=== PATIENT | male | born 1950 | race Caucasian/White ===

== ENCOUNTER → 2022-02-14 | Day surgery (SDC) | payer MEDICARE, BC ==
[2022-02-09 11:01] LABS: BASOPHILS % (AUTO) 0.2 % (0-1); EOSINOPHILS % (AUTO) 0 % (0-6); LYMPHOCYTES # (AUTO) 0.8 X10'3 (1.1-4.8); MEAN CORPUSCULAR HEMOGLOBIN 29.9 PG (27.0-31.0); MEAN CORPUSCULAR HGB CONC 34.1 g/dL (33.0-36.5); MEAN CORPUSCULAR VOLUME 87.6 FL (78-98); MEAN PLATELET VOLUME 8.5 FL (7.4-10.4); MONOCYTES # (AUTO) 0.4 X10'3 (0-0.9); MONOCYTES % (AUTO) 5.5 % (2-12); NEUTROPHILS # (AUTO) 6.3 X10'3 (1.8-7.7); NEUTROPHILS % (AUTO) 83.3 % (42-75); PRE OP HEMATOCRIT 47.3 % (42.0-52.0); PRE OP HEMOGLOBIN 16.2 g/dL (14.0-17.9); PRE OP PLATELET COUNT 264 X10'3 (140-440); RED CELL DISTRIBUTION WIDTH 13.9 % (11.5-14.5)
[2022-02-09 11:02] LABS: CLARITY,URINE CLEAR (Clear); COLOR,URINE YELLOW (Yellow); GLUCOSE, URINE NEGATIVE (Neg); KETONES,URINE NEGATIVE (Neg); LEUKOCYTE ESTERASE ,URINE NEGATIVE (Neg); NITRITES, URINE NEGATIVE (Neg); OCCULT BLOOD,URINE NEGATIVE (Neg); PROTEIN,URINE NEGATIVE (Neg); UROBILINOGEN,URINE 0.2 E.U/dL (0.2-1.0)
[2022-02-09 11:08] LABS: UA COLLECTION TYPE CLN CATCH MIDSTREAM
[2022-02-09 11:25] LABS: ALBUMIN 4.4 G/DL (3.4-5.0); ALBUMIN/GLOBULIN RATIO 1.4 (1.1-1.5); ALKALINE PHOSPHATASE 131 IU/L (46-116); BLOOD UREA NITROGEN 19 MG/DL (7-18); BUN/CREATININE RATIO 21.1 (5.4-32.0); CALCIUM 8.9 MG/DL (8.5-10.1); CHLORIDE 106 MMOL/L (99-107); PRE OP ALT 32 U/L (30-65); PRE OP ANION GAP 8 (8-16); PRE OP AST 25 U/L (10-37); PRE OP BILIRUB, TOTAL 1.1 MG/DL (0.0-1.0); PRE OP GLUCOSE 129 MG/DL (70-104); PRE OP POTASSIUM 4.1 MMOL/L (3.4-5.1); PRE OP SODIUM 141 MMOL/L (135-145); TOTAL CARBON DIOXIDE 27.4 MMOL/L (24-32); TOTAL PROTEIN 7.6 G/DL (6.4-8.2); eGFR 83 ML/MIN
[~2022-02-14] VITALS: Ht 193 cm; Wt 91.0 kg
[2022-02-14] VITALS (15 sets, daily range): BP systolic 134–156; BP diastolic 73–86
[~2022-02-14] MED LIST: BUPIVAcaine 0.5% inj/PF 30 ML ONE; BUPIVAcaine 0.5% inj/PF 30 ml vial IJ ONE; LIDOcaine 2% (20mg/ml) 5ml vial ONE; NAPR220C15 PO; cefazolin/dext.iso 2gm/50ml IV ONE; dexamethasone sod phosphate 4mg/ml inj. ONE; famotidine 20mg tablet PO ONE; fentaNYL /PF 50mcg/ml 5ml ampule ONE; meperidine/PF 25mg/ml syringe IV PRN; midazolam 1 mg/ML 2ml injection ONE; morphine 2 MG/ML inj. syringe IV PRN; morphine 4 MG/ML inj SYRINge IV PRN; ondansetron/PF 4mg/2ml inj IV PRN; ondansetron/PF 4mg/2ml inj ONE; proCHLORperazine 10 MG/2 ml inj IV PRN; propofol inj 20 ML IV ONE; ringers solution, lacted 1,000 ML IV SCH; rocuronium 10mg/ml inj IV ONE; sevoflurane 250ml liquid IH ONE
--- NOTE | 2022-02-14 14:05 | NUR ---
Received from OR via [facility], accompanied by Anesthesiologist VIVEK and report given by Anesthesiolgist AND RESOLUTION AGENT. PT ARRIVES RESPONSIVE TO VERBAL STIMULI, AAOX4, VSS, IVF INFUSING. PT DENIES PAIN, RESTING COMFORTABLY. LAP AGUS INCISION SITES DRY AND CLEAN, NO DRAINAGE. PT HAS NO COMPLAINTS. Addendum: 02/14/22 at 1418 by Reed Bernstein RN RN Amended: Links added.
--- NOTE | 2022-02-14 16:15 | NUR ---
PT HAD POSITIVE VOID. PT BLADDER SCANNED. POST RESIDUAL WAS 6ML OF URINE. PERFORMED AT DIFFERENT ANGLES. Addendum: 02/14/22 at 1708 by Reed Bernstein RN, RN Amended: Links added.
--- NOTE | 2022-02-14 16:35 | NUR ---
PT DC'D PER ORDER, MEETS DC PROTOCOL. PT DC PAPERWORK PROVIDED, VERBAL AND WRITTEN. PT AND SPOUSE VERBALIZED UNDERSTANDING. PAIN CONTROLLED, AAOX4. PT INDEPENDENT IN AMBULATION. VSS. PT WHEELCHAIRED TO POV WITH OTHER [employer] FLATBED DRIVER AND THERE WAS NO INCIDENT. ALL QUESTIONS ADDRESSED AND PT AWARE OF FOLLOW UP WITH MD. Addendum: 02/14/22 at 1655 by Reed Bernstein RN, RN Amended: Links added.
== END | disposition home or self-care (01) ==
LOC: PAS 07:56
PROVIDERS: ATTEND Surgery
DX: K40.20 Bilateral inguinal hernia, without obstruction or gangrene, not specified as recurrent (principal); K41.90 Unilateral femoral hernia, without obstruction or gangrene, not specified as recurrent; G30.9 Alzheimer's disease, unspecified; F02.80 Dementia in other diseases classified elsewhere, unspecified severity, without behavioral disturbance, psychotic disturbance, mood disturbance, and anxiety; M19.90 Unspecified osteoarthritis, unspecified site; Z85.3 Personal history of malignant neoplasm of breast; Z88.2 Allergy status to sulfonamides; Z96.653 Presence of artificial knee joint, bilateral; Z96.619 Presence of unspecified artificial shoulder joint; Z98.890 Other specified postprocedural states; Z79.899 Other long term (current) drug therapy; Z20.822 Contact with and (suspected) exposure to COVID-19
CPT/HCPCS: 36415; 49650; 80053; 81003; 82948; 85025; 93005; C1758; C1781; J0690; J1100; J2405; J2704; J3490; J7030; J7120; S0020; U0003; U0005; Z7506; Z7508; Z7512; A4215; A4618; J2250; J3010

== ENCOUNTER 2024-02-18 07:37 | Day surgery (SDC) | payer MEDICARE, OTHER ==
[2024-02-12 16:21] LABS: BILIRUBIN,URINE NEGATIVE (Neg); CLARITY,URINE CLOUDY (Clear); COLOR,URINE YELLOW (Yellow); GLUCOSE, URINE NEGATIVE (Neg); KETONES,URINE NEGATIVE (Neg); LEUKOCYTE ESTERASE ,URINE NEGATIVE (Neg); NITRITES, URINE NEGATIVE (Neg); OCCULT BLOOD,URINE NEGATIVE (Neg); PH,URINE 6.5 (4.8-8.0); PROTEIN,URINE NEGATIVE (Neg); UROBILINOGEN,URINE 0.2 E.U/dL (0.2-1.0)
[2024-02-12 16:25] LABS: BASOPHILS % (AUTO) 0.5 % (0-1); EOSINOPHILS # (AUTO) 0.1 X10'3 (0-0.9); EOSINOPHILS % (AUTO) 1.8 % (0-6); LYMPHOCYTES # (AUTO) 1.1 X10'3 (1.1-4.8); MEAN CORPUSCULAR HGB CONC 34.3 g/dL (33.0-36.5); MEAN CORPUSCULAR VOLUME 90.5 FL (78-98); MEAN PLATELET VOLUME 8.2 FL (7.4-10.4); MONOCYTES # (AUTO) 0.6 X10'3 (0-0.9); MONOCYTES % (AUTO) 8.9 % (2-12); NEUTROPHILS # (AUTO) 4.5 X10'3 (1.8-7.7); NEUTROPHILS % (AUTO) 70.8 % (42-75); PRE OP HEMATOCRIT 44.3 % (42.0-52.0); PRE OP HEMOGLOBIN 15.2 g/dL (14.0-17.9); PRE OP PLATELET COUNT 253 X10'3 (140-440); PRE OP WHITE BLOOD COUNT 6.3 10'3 (4.8-10.8); RED CELL DISTRIBUTION WIDTH 13.8 % (11.5-14.5)
[2024-02-12 16:32] LABS: UA COLLECTION TYPE NON-SPECIFIED
[2024-02-12 16:34] LABS: PRE OP INR 1.1 INR; SQUAMOUS EPITHELIAL CELL,UR FEW /LPF (FEW)
[2024-02-12 16:35] LABS: RBC,URINE NONE SEEN /HPF (0-2)
[2024-02-12 16:36] LABS: BACTERIA,URINE FEW /HPF (Neg)
[2024-02-12 16:37] LABS: ALBUMIN 3.9 G/DL (3.4-5.0); ALBUMIN/GLOBULIN RATIO 1.1 (1.1-1.5); ALKALINE PHOSPHATASE 158 IU/L (46-116); BLOOD UREA NITROGEN 26 MG/DL (7-18); BUN/CREATININE RATIO 24.3 (10.0-20.0); CALCIUM 8.5 MG/DL (8.5-10.1); CHLORIDE 105 MMOL/L (99-107); CREATININE 1.07 MG/DL (0.60-1.10); PRE OP ALT 53 U/L (30-65); PRE OP ANION GAP 4 (8-16); PRE OP AST 37 U/L (10-37); PRE OP BILIRUB, TOTAL 1.2 MG/DL (0.0-1.0); PRE OP GLUCOSE 88 MG/DL (70-104); PRE OP POTASSIUM 4.2 MMOL/L (3.4-5.1); PRE OP SODIUM 138 MMOL/L (135-145); TOTAL CARBON DIOXIDE 28.9 MMOL/L (24-32); TOTAL PROTEIN 7.4 G/DL (6.4-8.2); eGFR 68 ML/MIN
[2024-02-12 16:58] LABS: PRE OP PROTIME 11.9 SECONDS (9.0-12.0)
[~2024-02-18] VITALS: Ht 193 cm; Wt 93.0 kg
[2024-02-18] VITALS (24 sets, daily range): BP systolic 116–150; BP diastolic 54–81; PULSE 68–89; RESP 12–23; TEMP 97.9–99.4; O2SAT 93–98
[2024-02-18] MEDS: potassium cl 20mEq in 1/2 NS 1,000 ML IV SCH (04:30)
[2024-02-18] MEDS: tranexamic acid inj. 1,000 MG in normal saline IV soln 100ML IV ONE (05:30)
[2024-02-18] MEDS: cefazolin 2gm/D5W 100mL 100 ML IV ONE (05:30)
[~2024-02-18 07:37] MED LIST changes: -BUPIVAcaine 0.5% inj/PF 30 ML ONE; -BUPIVAcaine 0.5% inj/PF 30 ml vial IJ ONE; +GLUC1TAB75 PO; -LIDOcaine 2% (20mg/ml) 5ml vial ONE; +MULT-1085 PO; -NAPR220C15 PO; +PROSTATE SUPPLEMENT PO; +VIT1CAPS46 PO; +[UNRECOGNIZED DRUG - MIXTURE] PO; -cefazolin/dext.iso 2gm/50ml IV ONE; -dexamethasone sod phosphate 4mg/ml inj. ONE; -famotidine 20mg tablet PO ONE; -fentaNYL /PF 50mcg/ml 5ml ampule ONE; -meperidine/PF 25mg/ml syringe IV PRN; -midazolam 1 mg/ML 2ml injection ONE; -morphine 2 MG/ML inj. syringe IV PRN; -morphine 4 MG/ML inj SYRINge IV PRN; -ondansetron/PF 4mg/2ml inj IV PRN; -ondansetron/PF 4mg/2ml inj ONE; -proCHLORperazine 10 MG/2 ml inj IV PRN; -propofol inj 20 ML IV ONE; -ringers solution, lacted 1,000 ML IV SCH; -rocuronium 10mg/ml inj IV ONE; -sevoflurane 250ml liquid IH ONE
[2024-02-18] MEDS ORDERED: ondansetron/PF 4mg/2ml inj IV PRN ×2 (08:15→10:00)
[2024-02-18] MEDS ORDERED: fentaNYL/PF 50MCG/1 ML 2ML syringe IV PRN ×2 (08:15)
[2024-02-18] MEDS ORDERED: labetalol 20mg/4ml (5mg/ml) syringe IV PRN (08:15)
[2024-02-18] MEDS ORDERED: morphine 2 MG/ML inj. syringe IV PRN (08:15)
[2024-02-18] MEDS ORDERED: hydrALAZINE 20mg/ml inj. IV PRN (08:15)
[2024-02-18] MEDS: ringers solution, lacted 1,000 ML IV SCH ×2 (08:43→14:17)
[2024-02-18] MEDS: famotidine 20mg tablet PO ONE (08:43)
[2024-02-18] MEDS ORDERED: vancomycin 1,000mg inj ONE (09:56)
[2024-02-18] MEDS ORDERED: BUPIVAcaine 0.5% inj/PF 30 ML ONE (09:57)
[2024-02-18] MEDS ORDERED: magnesium hydroxide 30ml (MOM) UD suspension PO PRN (10:00)
[2024-02-18] MEDS ORDERED: diphenhydrAMINE 25mg capsule PO PRN (10:00)
[2024-02-18] MEDS ORDERED: bisacodyl 10mg suppository rectal RC PRN (10:00)
[2024-02-18] MEDS ORDERED: naloxone 0.4 mg/ml inj IV PRN (10:00)
[2024-02-18] MEDS ORDERED: sevoflurane 250ml liquid IH ONE (10:05)
[2024-02-18] MEDS ORDERED: fentaNYL/PF 50MCG/1 ML 2ML syringe ONE ×2 (10:06→11:47)
[2024-02-18] MEDS ORDERED: LIDOcaine 2% (20mg/ml) 5ml vial ONE (10:07)
[2024-02-18] MEDS ORDERED: midazolam 1 mg/ML 2ml injection ONE (10:07)
[2024-02-18] MEDS ORDERED: ROPIVAcaine 0.5% (5mg/ml) 30ml vial ONE (10:07)
[2024-02-18] MEDS ORDERED: propofol inj 20 ML IV ONE (10:07)
[2024-02-18] MEDS ORDERED: rocuronium 10mg/ml inj IV ONE (10:09)
[2024-02-18] MEDS ORDERED: acetaminophen 1,000mg/100ml IV 100 ML IV ONE (10:23)
[2024-02-18] MEDS: BUPIVAcaine 0.5% inj/PF 30 ml vial IJ ONE (10:45)
[2024-02-18] MEDS: acetaminophen 325mg tablet PO PRN (15:46)
[2024-02-18] MEDS: oxyCODONE IR 5mg (immed. release) tablet PO PRN (16:39)
[2024-02-18] MEDS: cefazolin 2gm/D5W 100mL 100 ML IV SCH (18:02)
[2024-02-19 02:00] VITALS: BP 126/61; PULSE 84; RESP 14; TEMP 97.4; O2SAT 95
[2024-02-19 06:00] VITALS: BP 146/66; PULSE 82; RESP 16; TEMP 98.4; O2SAT 93
[2024-02-19 06:50] LABS: BASOPHILS % (AUTO) 0.1 % (0-1); EOSINOPHILS % (AUTO) 0.1 % (0-6); HEMATOCRIT 41.8 % (42.0-52.0); HEMOGLOBIN 14.5 g/dl (14.0-17.9); LYMPHOCYTES # (AUTO) 1.2 X10'3 (1.1-4.8); LYMPHOCYTES % (AUTO) 12.7 % (21-51); MEAN CORPUSCULAR HEMOGLOBIN 31.2 PG (27.0-31.0); MEAN CORPUSCULAR HGB CONC 34.8 g/dL (33.0-36.5); MEAN CORPUSCULAR VOLUME 89.7 FL (78-98); MEAN PLATELET VOLUME 8.3 FL (7.4-10.4); MONOCYTES # (AUTO) 1.2 X10'3 (0-0.9); MONOCYTES % (AUTO) 13.2 % (2-12); NEUTROPHILS # (AUTO) 6.9 X10'3 (1.8-7.7); NEUTROPHILS % (AUTO) 73.9 % (42-75); PLATELET COUNT 237 X10'3 (140-440); RED BLOOD COUNT 4.66 X10'6 (4.70-6.10); RED CELL DISTRIBUTION WIDTH 13.9 % (11.5-14.5); WHITE BLOOD COUNT 9.3 X10'3 (4.5-11.0)
[2024-02-19 06:59] LABS: ANION GAP 8 (8-16); CHLORIDE 104 MMOL/L (99-107); SODIUM 136 MMOL/L (135-145); TOTAL CARBON DIOXIDE 24.3 MMOL/L (24-32)
[2024-02-19] MEDS: aspirin 325mg tablet PO SCH (09:17)
== END 2024-02-19 09:50 | disposition home or self-care (01) ==
LOC: PAS IN 07:37 → UNDOADMIN 07:37 → PAS 07:37 → ORTHO 4S 10:08 → EDSTATUS 13:30 → PAS 02-19 09:50
PROVIDERS: ATTEND Specialist
DX: M19.012 Primary osteoarthritis, left shoulder (principal); I25.2 Old myocardial infarction; I20.9 Angina pectoris, unspecified; Z79.899 Other long term (current) drug therapy; Z90.49 Acquired absence of other specified parts of digestive tract; Z96.653 Presence of artificial knee joint, bilateral; Z98.890 Other specified postprocedural states; Z88.2 Allergy status to sulfonamides
CPT/HCPCS: 23430; 23472; 36415; 71046; 73030; 80051; 80053; 81001; 82948; 85025; 85610; 85730; 86885; 86900; 86901; 87081; 87088; 97110; 97161; 97535; C1776; J0131; J0665; J0690; J1100; J2250; J2405; J2704; J3010; J3370; J3480; J3490; J7030; J7120; Z7506; Z7508; Z7512; 76000; A4565; A4618; A6449; A6455; A7000; G0378; J2795; S0020